=== PATIENT | female | born 1955 | race Caucasian/White ===

== ENCOUNTER 2019-04-06 07:30 | Inpatient (IN) | payer BC, OTHER ==
--- NOTE | 2019-04-01 14:15 | HP ---
AMENDED REPORT NOW INCLUDES DESIGNATED COSIGNER HISTORY AND PHYSICAL: DATE OF ADMISSION/SURGERY: 04/06/19 DATE OF OFFICE VISIT: 03/27/19 SURGEON: Dr. Odell.* (DICTATED BY NEELAM DE GUZMAN) PROCEDURE: Left total hip replacement. CHIEF COMPLAINT: Left hip pain. HISTORY OF PRESENT ILLNESS: Ms. Parada is a 63-year-old female, who reports approximately 2 years of increasingly severe left hip pain. This has become 8/ 10 daily aching pain in her left groin. She has difficulty walking about half a block without severe pain. She uses a rolling walker at all times. She has tried ultrasound-guided injections, which helped temporarily. She has also tried physical therapy, antiinflammatories, and pain medication. At this point , she would like to proceed with a total hip arthroplasty. She does have a significant history of lumbar back problems and pain. She had a lumbar fusion 3 years ago. PAST MEDICAL HISTORY: 1. Morbid obesity. 2. Chronic back pain. 3. Lumbar stenosis. 4. Depression. 5. Anxiety. 6. Hypertension. 7. Hypercholesterolemia. 8. Osteoarthritis. PAST SURGICAL HISTORY: 1. Spinal fusion, 2017. 2. Spinal cord stimulator implantation, 2017. 3. in 1988. 4. Cataract excisions bilaterally in 2019. MEDICATIONS: 1. Citalopram hydrobromide p.o. daily, unknown dosage. 2. Metoprolol tartrate 50 mg p.o. daily. 3. Pravastatin sodium 20 mg p.o. daily. 4. Hydrochlorothiazide 12.5 mg 1 p.o. daily. 5. Bupropion HCl 300 mg 1 p.o. daily. 6. Losartan potassium unknown dosage. 7. Tylenol as needed. 8. Nortriptyline HCl 25 mg p.o. daily. 9. Nabumetone 750 mg q.12 hours. 10. Tizanidine HCl 4 mg take 1-1/2 tablets in the a.m. and 3 in the p.m. 11. Vitamin D 2000 units p.o. daily. 12. Escitalopram oxalate 20 mg 1 p.o. daily. 13. Chantix. ALLERGIES: No known drug allergies. FAMILY HISTORY: Positive for cancer, lupus, and cystic fibrosis. SOCIAL HISTORY: The patient is currently disabled and lives at home with her . She is a smoker, smokes about 6 cigarettes currently per day. She used to smoke 1-1/2 packs x40 years. She drinks about 5 alcoholic beverages per week. She denies recreational drug use. She is right-hand dominant. She uses a walker to ambulate. REVIEW OF SYSTEMS: General: Negative for fevers, chills, night sweats, unexplained weight loss or gain. No known anesthesia problems. HEENT: Negative for headache, lightheadedness, syncopal episodes, visual changes. Integumentary: Negative for abrasions, lesions, open wounds. Cardiothoracic: Negative for hypertension, chest pain, palpitations, or edema. Respiratory: Negative for shortness of breath with exertion, chronic cough, or wheezing. GI : Positive for GERD symptoms. Negative for nausea, vomiting, diarrhea, constipation. : Negative for nocturia, urinary frequency, urgency, history of UTIs, kidney problems. Musculoskeletal: Positive for back pain. Positive for history of fractures and positive for left hip pain. Neurologic: Negative for paresthesias, numbness, history of seizures, stroke, or poor balance. Negative of anxiety, depressions. Endocrine: Negative for diabetes, thyroid issues. Hematologic: Negative for easy bruising, anemia, bleeding disorders, history of DVT. ID: Positive for MRSA infection in 2017. Negative for hep C or HIV. PHYSICAL EXAMINATION GENERAL: Well-developed, well-nourished 63-year-old female in no acute distress. VITAL SIGNS: Height 60 inches, weight 220 pounds. Pulse 72, BP 96/64, BMI 43. HEENT: Normocephalic, atraumatic. PERRLA. Extraocular movements intact. NECK: Supple. No palpable lymph nodes. Throat clear. PULMONARY: Lungs clear to auscultation bilaterally. No wheezes, rales, or rhonchi. CARDIO: Regular rate and rhythm. S1 and S2 normal. No murmurs, rubs, gallops , or edema. ABDOMEN: Positive bowel sounds, soft, and nontender. NEUROLOGIC: A and O x3. Cranial nerves II through XII intact. Sensation is intact to light touch. MUSCULOSKELETAL: Left lower extremity: The patient's skin is intact. No abrasions or open wounds. No palpable masses or lymph nodes. She has 0 to 80 degrees of flexion at the hip with severe groin pain. She lacks 10 degrees from neutral. She has no internal rotation with groin pain. She has 30 degrees of external rotation with severe groin pain. Distally no edema, varicosities, or hyperreflexia. She reports some slight decreased sensation to light touch along the lateral posterior gastrocnemius and no other loss of sensation. Otherwise, sensation to light touch is intact. 5/5 ankle, dorsiflexion and plantarflexion strength. Full sensation to light touch in all nerve distributions. 2+ palpable DP pulse. DIAGNOSTIC STUDIES: Multi-view radiographs of her left hip were reviewed and showed [id number] arthritis with complete loss of joint space with some osteophyte formation, subchondral sclerosis, and cyst formation. IMPRESSION: Left hip severe osteoarthritis. PLAN: The patient is scheduled to undergo a left total hip replacement on 04/[address] Ghazala Odell. She has discussed with the patient the procedure as well as the risks and benefits and she elects to proceed. She will return to the office 10 to 14 days postop followup and suture removal. Prescription for Percocet will be sent home with the patient when she is discharged from the hospital. An I-STOP was performed today in the office and was negative. NEELAM ESTEVEZ [id number]/FRANKIE #: [id number] AGUSTÍN
--- NOTE | 2019-06-05 13:39 | HP ---
PREOPERATIVE HISTORY AND PHYSICAL: DATE OF ADMISSION/SURGERY: 06/13/19 SURGEON: Dr. Ghazala Odell.* (DICTATED BY NEELAM ABBOTT) PROCEDURE: Left total hip arthroplasty. CHIEF COMPLAINT: Left hip pain. HISTORY OF PRESENT ILLNESS: Ms. Parada is a 64-year-old female followed by Dr. Odell for worsening left hip pain. Over the last 6 months, the patient's pain has became an 8/10 daily with a deep ache in the left groin. She has difficulty walking even a half block without severe pain. She uses a rolling walker at times and has undergone steroid-guided injections without relief. She has also tried conservative treatments of physical therapy, antiinflammatories, and pain medication and is seeking surgical intervention with Dr. Odell today. PAST MEDICAL HISTORY: 1. Morbid obesity. 2. Chronic back pain. 3. Lumbar stenosis. 4. Depression/anxiety. 5. Hypertension. 6. Hypercholesterolemia. 7. Osteoarthritis. She denies a history of DVT or pulmonary embolism. PAST SURGICAL HISTORY: 1. Spinal fusion in 2017. 2. Spinal cord stimulator implantation in 2017. 3. . She denies anesthetic complications with any of these procedures. CURRENT MEDICATIONS: 1. Metoprolol tartrate 50 mg 1 tab p.o. daily. 2. Atorvastatin 40 mg 1 tab p.o. daily. 3. Bupropion HCL 300 mg 1 tab p.o. daily. 4. Losartan potassium 50 mg 1 tab p.o. daily. 5. Tylenol 500 mg p.r.n. for pain. 6. Nortriptyline HCL 25 mg 1 tab p.o. daily. 7. Vitamin D 2000 units 1 tab p.o. daily. 8. Citalopram oxalate 20 mg 1 tab p.o. daily. 9. Tizanidine HCL 4 mg 1-1/2 tabs q.a.m. and 3 tabs q.p.m. 10. Nabumetone 750 mg every 12 hours. ALLERGIES: TRAMADOL causes hallucinations and nausea. FAMILY HISTORY: Positive for cancer, but negative for diabetes or heart disease. SOCIAL HISTORY: She lives with her , who will care for her postoperatively. She is currently disabled. She smokes 1 to 2 cigarettes daily and consumes 5 alcoholic beverages per week. She denies recreational drug use. REVIEW OF SYSTEMS: Fourteen systems were reviewed with the patient and are positive for left hip pain, lower back pain, fatigue, and depression, and otherwise all systems are negative. PHYSICAL EXAMINATION GENERAL: She is a well-developed, well-nourished female, seated in exam chair, in no acute distress, with appropriate affect. VITAL SIGNS: Height 60 inches, weight 221 pounds. Pulse 72, blood pressure 132 /84. HEENT: Normocephalic, atraumatic. Hearing and vision are grossly intact with extraocular movements intact. NECK: The trachea is midline and symmetrical. CHEST: Lungs are clear to auscultation. No wheezes, rales, or rhonchi appreciated. CARDIO: Regular rate and rhythm. Normal S1, S2. No murmurs, rubs, or gallops noted. ABDOMEN: Nondistended. Bowel sounds present. MUSCULOSKELETAL: Left Lower Extremity: Skin is dry and intact without abrasions or open wounds. No palpable masses or lymph nodes. She flexes the hip to 80 degrees with severe groin pain. She lacks 10 degrees from neutral and has no internal rotation. She has 30 degrees of external rotation with severe groin pain, but no distal edema, varicosities, or hyperreflexia. She reports some slight decreased sensation to light touch along the lateral and posterior gastroc, but no other loss of sensation. She has 5/5 strength against resistance in 4 planes in the left ankle and sensation is otherwise intact with 2+ dorsalis pedis pulse. IMAGING: X-rays performed previously showed [id number] osteoarthritis with complete loss of joint space, osteophyte formation, and subchondral sclerosis with cyst formation. ASSESSMENT: End-stage left hip osteoarthritis. PLAN: Left total hip arthroplasty with Dr. Odell. The patient's questions were answered and she would like to proceed. Dr. Odell reviewed the potential risks and complications with the patient today. The patient will follow up postoperatively and pain medicines will be dispensed postoperatively. NEELAM ABBOTT [id number]/CPS #: [id number] MTDD
[2019-06-12] MEDS ORDERED: Buffered Lidocaine 1% SYRIN* 1 ML/SYRINGE INTRADERM ONE (10:58)
[2019-06-13] MEDS ORDERED: Tranexamic Acid 1,000 MG in NS 0.9% 50 ML* (outpatient use) IV SCH ×2
[2019-06-13] MEDS ORDERED: Lactated Ringers 1000 ML Bag* 1,000 ML IV SCH (06:00)
--- OUTSIDE RECORDS SUMMARY | 2019-06-13 10:36 | XMS REPORT | Continuity of Care Document ---
:1955 External Reference #:[id number] Author Name Ghazala Odell M.D. (transmitted by agent of provider Tahira Monroe) Address [address] [place] [address] Care Team Providers Name Role Phone Mirtha Flores MD - Family Medicine Care Team Information Licensing Specialist [phone] Problems Active Problems Provider Date Localized, primary osteoarthritis of the pelvic Ghazala Odell M.D. Onset: 03/2019 region and thigh Social History Type Date Description Comments Sex Unknown ETOH Use Drinks 4 Alcoholic Beverages Per Week Tobacco Use Start: Unknown Light tobacco smoker (10 or fewer cigarettes/day) Smoking Status Reviewed: 06/02/19 Light tobacco smoker (10 or fewer cigarettes/day) Exercise Type/Frequency Exercises rarely Allergies, Adverse Reactions, Alerts Active Allergies Reaction Severity Comments Date Tramadol hallucinations/ nausea 06/02/2019 Inactive Allergies NKDA 04/12/2014 Medications Active Medications SIG Qnty Indications Ordering Date Provider Metoprolol Tartrate Unknown 50mg Tablets Hydrochlorothiazide 1 By Mouth Unknown 12.5mg Capsules Daily Bupropion HCL 1 by mouth Unknown 300mg Tablets every day Losartan Potassium Unknown 50mg Tablets Tylenol as needed Unknown 325mg Capsules Nortriptyline HCL 25mg Unknown Nabumetone 750mg q 12 hrs Unknown Tizanidine HCL 4 mg. take 1.5 Unknown in Am and 3 in PM Vitamin D Unknown 2000Unit Capsules Escitalopram Oxalate 1 by mouth Unknown 20mg Tablets every day Chantix Unknown Atorvastatin Calcium 1 by mouth Unknown 40mg Tablets every day Immunizations CPT Code Status Date Vaccine Lot # [id number] Given 06/02/1999 Flu Vaccine 05162 Given 06/02/1999 Tetanus And Diptheria (Td) For Adult Use Preservative Free Vital Signs Date Vital Result Comment 06/02/2019 10:50am Height 60 inches 5'0" Weight 221.00 lb Heart Rate 72 /min BP Systolic 132 mmHg BP Diastolic 84 mmHg Respiratory Rate 18 /min Body Temperature 98.0 F Pain Level 9 BMI (Body Mass Index) 43.2 kg/m2 03/27/2019 9:47am Height 60 inches 5'0" Weight 220.00 lb per patient Heart Rate 72 /min BP Systolic 96 mmHg BP Diastolic 64 mmHg BMI (Body Mass Index) 43.0 kg/m2 Results Test Date Facility Test Result H/L Range Note Urinalysis Profile 03/27/2019 [facility] Urine Color Yellow [address] [place] [address] [phone] Urine Appearance Cloudy Urine Specific [place] 1.019 Normal 1.010-1.030 Urine pH 5.0 Normal 5-9 Urine Urobilinogen Negative Negative Urine Ketones Trace Abnormal Negative Urine Protein Negative Negative Urine Leukocytes Negative Negative Urine Blood Negative Negative Urine Nitrite Negative Negative Urine Bilirubin Negative Negative Urine Glucose Negative Negative Inr/Protime 03/27/2019 [facility] Inr 0.85 Normal 0.82-1.[address] [place] [address] [phone] Laboratory test 03/27/2019 [facility] Partial 29.5 Normal 26.0 -38.[address] [place] [address] Time PTT [phone] Type & Screen 03/27/2019 [facility] Patient O Positive [address]IVE Blood Type [place], [place] [id number] [phone] Antibody Screen NEGATIVE Urine Culture And 03/27/2019 [facility] Urine Culture SEE RESULT [address] [place] [address] [phone] 1 AA 04/06 2 Standard intensity warfarin therapeutic range: 2.0-3.0 High intensity warfarin therapeutic range: 2.5-3.5 3 AA 04/06 4 SEE RESULT BELOW Name: PAPO MERCEDES : [address]: Ghazala Odell MD Acct: [id number] Unit: [id number] AGE: 63 Location: PAT Re03/27/19 SEX: F Status: REG REF SPEC: [id number] KARL: 03/27/19-[address]: Ghazala Odell MD REQ: [id number] RECD: 03/27/19 STATUS: EDEN ORTIZ DR: Mirtha Flores MD _ SOURCE: URINE SPDESC: ORDERED: Urine Culture COMMENTS: JEY 04/06 QUERIES: Urine Source: Clean Catch Procedure Result Reported Site Urine Culture Final 03/28/19- 1514 ML No growth of clinically significant organisms * ML - Main Lab . END OF REPORT DEPARTMENT OF PATHOLOGY, [address] [place] [address] Nickolas Jiménez M.D. Director [facility] # [id number] Procedures Description No Information Available Medical Devices Description No Information Available Encounters Type Date Location Provider Dx Diagnosis Office Visit 02/17/2019 [facility] Ghazala Odell M25.552 Pain in left hip 2:[facility] M16.12 Unilateral primary osteoarthritis, left hip Assessments Date Code Description Provider 03/27/2019 M16.12 Unilateral primary osteoarthritis, left hip Ghazala Odell M.D. 03/27/2019 M25.552 Pain in left hip Ghazala Odell M.D. 02/17/2019 M25.552 Pain in left hip Ghazala Odell M.D. 02/17/2019 M16.12 Unilateral primary osteoarthritis, left hip Ghazala Odell M.D. Plan of Treatment Future Appointment(s):06/23/2019 2:00 pm - Ghazala Odell M.D[facility] at [facility]06/13/2019 1:30 pm - Ghazala Odell M.D. at [facility] Functional Status Description No Information Available Mental Status Description No Information Available Referrals Description No Information Available
[2019-06-13] MEDS ORDERED: Lidocaine 2% PF * 5 ML VIAL ONE ×3 (11:01→11:34)
[2019-06-13] MEDS ORDERED: ROPIVACAINE 5 MG/ML 30 ML BTL (0.5%) ONE ×2 (11:01→13:02)
[2019-06-13] MEDS ORDERED: Dexmedetomidine* 200 MCG/2 ML 2 ML VIAL ONE (11:01)
[2019-06-13] MEDS ORDERED: ceFAZolin 2 GM in NS PREMIX(*) 2 GM/100 ML BAG IVPB ONE (11:20)
[2019-06-13] MEDS ORDERED: Midazolam* 1 MG/ML 2 ML VIAL (2 MG) ONE ×2 (11:22→14:38)
[2019-06-13] MEDS ORDERED: Propofol* 10 MG/ML 20 ML BTL ONE (11:25)
[2019-06-13] MEDS ORDERED: KETAMINE HCL* 50 MG/ML 10 ML VIAL ONE (11:25)
[2019-06-13] MEDS ORDERED: Bupivacaine 0.5% SDV PF* 30ML VIAL ONE (11:34)
[2019-06-13] MEDS ORDERED: EPHEDrine (Pressors)* 50 MG/ML VIAL ONE ×3 (14:06→16:07)
[2019-06-13] MEDS ORDERED: HYDROmorphone INJ1* 1 MG/ML SYRINGE ONE ×2 (14:19→16:26)
[2019-06-13] MEDS ORDERED: Labetalol IV* 5 MG/ML 20 ML VIAL ONE (14:23)
[2019-06-13] MEDS ORDERED: DiMENhydriNATE IV* 50 MG/ML VIAL IV PUSH PRN (14:47)
[2019-06-13] MEDS ORDERED: Naloxone* 0.4 MG/ML 1 ML VIAL IV PRN (14:47)
[2019-06-13] MEDS ORDERED: oxyCODONE TAB* 5 MG TAB PO PRN (14:47)
[2019-06-13] MEDS ORDERED: Ketorolac INJ* 30 MG/ML 1 ML VIAL ONE (15:07)
[2019-06-13] MEDS ORDERED: Ondansetron INJ* 2 MG/ML VIAL ONE (15:07)
[2019-06-13] MEDS ORDERED: Metoclopramide IV* 5 MG/ML 2 ML VIAL ONE (15:07)
[2019-06-13] MEDS ORDERED: Dexamethasone IV* 4 MG/ML 1 ML (4 MG) ONE (15:07)
[2019-06-13] MEDS ORDERED: nitroGLYCERIN IV VIAL* 5 MG/ML VIAL ONE (15:18)
[2019-06-13] MEDS ORDERED: Acetaminophen IV 1GM/100ML * 100 ML ONE (15:22)
[2019-06-13] MEDS ORDERED: Bupivacaine 0.25% SDV PF* 10 ML VIAL INJ ONE (15:32)
[2019-06-13] MEDS ORDERED: fentaNYL* 50 MCG/ML 2 ML VIAL (100 MCG VIAL) ONE (15:32)
[2019-06-13] MEDS ORDERED: hydrALAZINE IV* 20 MG/ML VIAL ONE (15:38)
[2019-06-13] MEDS ORDERED: Morphine INJ* 2 MG/ML 1 ML SYRINGE (TWO MG - NEW SYRINGE VERSION) IV PRN (16:05)
[2019-06-13] MEDS ORDERED: Acetaminophen TAB* 325 MG PO PRN (16:05)
[2019-06-13] MEDS ORDERED: Ondansetron ODT TAB* 4 MG PO PRN (16:05)
[2019-06-13] MEDS ORDERED: Ondansetron INJ* 2 MG/ML VIAL IV PRN (16:05)
[2019-06-13] MEDS ORDERED: Magnesium Hydroxide LIQ* 30 ML UDC PO PRN (16:05)
[2019-06-13] MEDS ORDERED: diPHENhydraMINE PO* 25 MG PO PRN (16:05)
[2019-06-13] MEDS ORDERED: diPHENhydraMINE IV* 50 MG/ML 1 ml VIAL (BENADRYL) IV PRN (16:05)
[2019-06-13] MEDS ORDERED: Phenylephrine 40 MCG/ML SYRINGE ONE (16:20)
[2019-06-13] MEDS: HYDROmorphone INJ1* 1 MG/ML SYRINGE IV PRN ×4 (16:27→17:22)
[2019-06-13] MEDS ORDERED: oxyCODONE TAB* 5 MG TAB ONE (16:51)
--- NOTE | 2019-06-13 17:26 | OP ---
Operative Report - Blank - Operative Report Date of Operation: 06/13/19 Note: PAPO MERCEDES 1955 Date Of Surgery: 06/13/19 Ghazala Odell MD Channel Process Plant Operator: Jana RICHTER did help throughout the procedure with preparation of the hip, wound retraction, manipulation of the hip, and wound closure. Anesthesiologist: Jana Kirby MD Anesthesia Type: General Preoperative Diagnosis: Left severe degenerative osteoarthritis of the hip Postoperative Diagnosis: As above Procedure Performed: Left Total Hip Arthroplasty Complications: None Specimen: Femoral head and acetabular reamings sent to pathology. Hardware used: This is uncemented Hope total hip arthroplasty hardware for the femur a size 4 accolade II with 127 neck angle femoral component, for the acetabulum a size 46C trident II tritanium cluster hole shell with a 15 mm screw, for the insert a size 32C trident X3 polyethylene insert, and for the femoral head a size 32 + 0 biolox ceramic V40 femoral head. Brief history/Indication: PAPO MERCEDES was known in clinic and had a history of severe left hip pain. She failed conservative treatment with anti- inflammatories, pain pills, intra-articular injections and physical therapy. She elected to undergo left total hip arthroplasty due to continued pain and decreased quality of life. Radiographs showed severe end stage osteoarthritis of the hip with bone on bone contact. Informed consent was obtained from the patient. She understood the risks of surgery included but were not limited to: bleeding, infection, damage to nearby structures, intraoperative fracture, nerve palsy, failure of the hardware, early loosening, stiffness or loss of motion, dislocation, leg length discrepancy, anesthesia complications, stroke, heart attack, blood clot and . She wished to proceed. Intra-Operative findings: Intraoperatively the patient was noted to have severe loss of cartilage of the acetabulum and femoral head. Description of the Procedure: PAPO MERCEDES was identified in the preanesthesia unit. Her left hip was marked as the correct operative side. Informed consent was signed and placed in the chart. The patient was taken to the operating room and placed under anesthesia without complication. A haas catheter was placed. The patient was placed on the peg board with all bony prominences well padded. The left lower extremity was prepped and draped in the usual sterile fashion. Preoperative time -out was made to correctly identify the patient, side and site. Appropriate intraoperative antibiotics were given within one hour of incision. A standard posterior incision was made and carried sharply down to the lateral fascia. A new 10 blade was used to make an incision in the fascia in line with the skin incision. A charnley retractor was placed. The piriformis and conjoined tendons were identified and elevated off the posterolateral femur using electrocautery. These were tagged with number 5 Ethibond. Next electrocautery was used to make a posterolateral capsular flap and this was tagged with number 5 Ethibonds. The hip was carefully dislocated. Lesser trochanter to the center of the femoral head was measured at 50 mm. The oscillating saw was used to make the femoral neck cut. The femoral head was carefully removed. The femur was retracted anteriorly and the acetabular retractors were placed. Long-handled knife was used to sharply remove any remaining labrum from the acetabular rim. The acetabulum was sequentially reamed up to a size 46. A bleeding subchondral bone bed was obtained. A trial liner was placed and had excellent fit and stability. A 46C trident II tritanium cup with a 15 mm screw was placed and had excellent stability with appropriate anteversion and abduction angle. A size 32 C polyethylene liner was impacted into the acetabular shell. The liner was checked for stability and was stable. Next attention was turned to preparation of the femoral canal. A canal finder was used to enter the proximal femur. The femoral canal was sequentially broached up to a size 4 femoral broach trial. A trial neck and 32 +0 trial femoral head was chosen. Lesser trochanter to center of the femoral head measurement was satisfactory. The hip was reduced and taken through a range of motion. The hip was stable in all positions with good soft tissue tension and appropriate leg lengths. The hip was dislocated and all trials were removed. The final implant chosen was a accolade II size 4 with 127 neck angle. This stem was impacted into the femoral canal without difficulty. The stem was stable with appropriate anteversion. The femoral head chosen was a 32 +0 ceramic head. The head was impacted onto the femoral neck without difficulty. The final lesser trochanter to center of the femoral head measurement was satisfactory. The hip was reduced and taken through a range of motion. The hip was stable in all positions with good soft tissue tension and appropriate leg lengths. The hip was copiously irrigated with sterile saline. The previously tagged capsule and tendons were repaired to the posterolateral femur through two trochanteric drill holes. The lateral fascia layer was closed using number 1 vicryls. The rest of the incision was closed in a layered fashion using 0 and 2-0 vicryls. The skin was closed using 3-0 monocryl suture and Dermabond. Sterile adaptic, 4x4s and paper tape was used to cover the incision. The patients anesthesia was reversed without difficulty. She was taken to the PACU in stable condition. Intended weight-bearing will be as tolerated with posterior hip precautions.
[2019-06-13] MEDS: Lactated Ringers 1000 ML Bag* 1,000 ML IV SCH (18:56)
[2019-06-13] MEDS: oxyCODONE/Acetamin 5/325 MG* TAB PO PRN (19:57)
--- NOTE | 2019-06-13 20:08 | CONS ---
CC: Dr. Ghazala Odell; Dr. Mirtha Flores CONSULTATION REPORT: DATE OF CONSULTATION: 06/13/19 TIME OF EVALUATION: 4:30 p.m. REQUESTING PHYSICIAN: Dr. Ghazala Odell. PRIMARY CARE PROVIDER: Dr. Mirtha Flores. REASON FOR CONSULTATION: Management of comorbidities. HISTORY OF PRESENT ILLNESS: Ms. Parada is a 64-year-old female with past medical history of morbid ob esity with a BMI of 43, chronic back pain, lumbar stenosis, depression, anxiety, hypertension, hyperl ipidemia, osteoarthritis, who has been following with Dr. Odell with left hip pain. She has received multiple options of conservative treatment including steroid injections, physical therapy, and antii nflammatories with no success, so she was admitted today to undergo left total hip arthroplasty. During my evaluation, the patient was sent to PACU, recovering from anesthesia. It is reported that the patient was hypertensive during the procedure and received labetalol and hydralazine. After the surgery, on her arrival to PACU, the patient was hypotensive and received 1 dose of Babatunde-Synephrine, a nd she had good blood pressure response. At the time of my evaluation, the patient denied hip pain, but states that she was having back pain t hat is her usual chronic back pain. PAST MEDICAL HISTORY: 1. Morbid obesity. 2. Chronic back pain, status post spinal fusion and spinal cord stimulator implantation in 2017. 3. Lumbar stenosis. 4. Depression. 5. Anxiety. 6. Hypertension. 7. Hyperlipidemia. 8. Osteoarthritis. 9. Tobacco abuse. MEDICATION LIST: 1. Atorvastatin 40 mg p.o. at bedtime. 2. Bupropion 300 mg p.o. daily. 3. Cholecalciferol 2000 units p.o. daily. 4. Escitalopram 20 mg p.o. daily. 5. Hydrochlorothiazide 12.5 mg p.o. daily. 6. Losartan 50 mg p.o. daily. 7. Metoprolol tartrate 50 mg p.o. daily. 8. Nabumetone 750 mg p.o. q.12 hours. 9. Nortriptyline 50 mg p.o. at bedtime. 10. Tizanidine 4 mg 1-1/2 tablets p.o. in the morning and 2 to 3 tablets p.o. at bedtime. 11. Acetaminophen 2 tablets p.o. q.i.d. p.r.n. pain. 12. Chantix 1 mg p.o. b.i.d. ALLERGIES: No known drug allergies, but tramadol caused hallucinations and nausea. FAMILY HISTORY: There is a family history of cancer. SOCIAL HISTORY: The patient smokes 1 to 2 cigarettes a day and drinks 5 alcoholic beverages per week . No history of drug use. Surrogate decision maker is her son Jose Maria Parada, phone number is . REVIEW OF SYSTEMS: Limited as the patient is recovering from surgery, but all the pertinent negative and positive findings are in the HPI. PHYSICAL EXAM: Vital Signs: Temperature 97.2, heart rate is 84, respiratory rate is 21, oxygen satu ration is 98% on 2 L, blood pressure is 108/68. General: The patient is a morbidly obese lady, shelly martins in bed, in no acute distress. HEENT: Pupils are equal. Moist mucous membranes. CVS: Normal S1, S2. Regular rate and rhythm. Chest: Breath sounds bilaterally with no added sounds. Abdomen is ob denny. Bowel sounds present. Extremities: The patient has a clean dressing to her left hip and abduct or pillow in place. Neuro: She is alert and oriented x3, and she is recovering from spinal anesthes ia and not able to move her left leg yet. ASSESSMENT AND PLAN: Ms. Parada is a 64-year-old female with a past medical history of morbid obesity with a BMI of 43, chronic back pain, lumbar stenosis, depression, anxiety, hypertension, hypercholes terolemia, who was admitted for elective left total hip replacement. 1. Left total hip replacement. Management as per Orthopedics. 2. Hypertension. It is reported that the patient was hypertensive during the procedure requiring la betalol and hydralazine IV, and was hypotensive on arrival to PACU requiring Babatunde-Synephrine. At this point, I am going to hold her antihypertensives, I believe that probably can be resumed tomorrow. 3. Depression/anxiety. We will continue bupropion, escitalopram, and nortriptyline. 4. Chronic pain. Continue tizanidine and acetaminophen. 5. Tobacco abuse. Continue Chantix. 6. Hyperlipidemia. Continue atorvastatin. 7. DVT prophylaxis: We will be with apixaban as per Ortho. 8. Code status is full. TIME SPENT: Approximately 50 minutes was spent to complete this consultation. More than half this ti me was spent [id number] with the patient and coordination of care. [id number]/CPS #: [id number]
[2019-06-13] MEDS: CMC:Varenicline (NF) 1 MG TAB PO SCH (21:24)
[2019-06-13] MEDS: ceFAZolin 1 GM ADVAN(*) 1 GM in NS 0.9% 50 ML* 50 ML IVPB SCH (21:29)
[2019-06-13] MEDS: Magnesium Hydroxide LIQ* 30 ML UDC PO SCH (21:30)
[2019-06-13] MEDS: Docusate CAP* 100 MG PO SCH (21:30)
[2019-06-13] MEDS: Nortriptyline CAP* 25 MG PO SCH (21:31)
[2019-06-13] MEDS: Atorvastatin* 40 MG TAB PO SCH (21:36)
[2019-06-13] MEDS: Nystatin TOP POWDER* 15 GM BTL TOPICAL SCH (21:39)
[2019-06-13] MEDS: oxyCODONE TAB* 5 MG TAB PO PRN (22:27)
[2019-06-14] MEDS: oxyCODONE/Acetamin 5/325 MG* TAB PO PRN ×3 (01:23→21:11)
[2019-06-14] MEDS: oxyCODONE TAB* 5 MG TAB PO PRN (04:13)
[2019-06-14] MEDS: Lactated Ringers 1000 ML Bag* 1,000 ML IV SCH (04:16)
[2019-06-14] MEDS: Cyclobenzaprine TAB* 10 MG PO PRN ×3 (05:49→18:31)
[2019-06-14] MEDS: ceFAZolin 1 GM ADVAN(*) 1 GM in NS 0.9% 50 ML* 50 ML IVPB SCH ×2 (05:50→13:08)
[2019-06-14 06:55] LABS: Hematocrit 32 % (35-47); Hemoglobin 10.7 g/dL (12.0-16.0); Mean Platelet Volume 8.3 fL (7.4-10.4); Platelet Count 364 10^3/uL (150-450)
[2019-06-14 07:11] LABS: BUN/Creatinine Ratio 15.5 (8-20); Calcium 9.4 mg/dL (8.6-10.3); EGFR African American 65.7 (>60); EGFR Non-African American 54.3 (>60)
--- NOTE | 2019-06-14 08:42 | PN ---
Subjective Date of Service: 06/14/19 Interval History: Feeling okay this morning except that she couldn't sleep. Pain didn't particularly keep her awake and she has no pain now. Ate breakfast but has some stomach pains in the low abdomen described as a "stomach ache." No chest pain, shortness of breath. She did have a cough yesterday and a little one this morning. Objective Active Medications: Acetaminophen (Tylenol Tab*) 650 mg PO Q8HR PRN PRN Reason: MILD PAIN or TEMP > 100.4 Apixaban (Eliquis*) 2.5 mg PO BID [facility] Atorvastatin Calcium (Lipitor*) 40 mg PO QPM [facility] Last Admin: 06/13/19 21:36 Dose: 40 mg Bisacodyl (Dulcolax Supp*) 10 mg [place] DAILY PRN PRN Reason: CONSTIPATION Bupropion HCl (Bupropion Xl*) 300 mg PO QAM [facility] Cyclobenzaprine HCl (Flexeril Tab*) 10 mg PO Q6H PRN PRN Reason: SPASMS Last Admin: 06/14/19 05:49 Dose: 10 mg Diphenhydramine HCl (Benadryl Iv*) 25 mg IV Q6H PRN PRN Reason: PRURITIS Diphenhydramine HCl (Benadryl Po*) 25 mg PO Q6H PRN PRN Reason: PRURITIS Docusate Sodium (Colace Cap*) 100 mg PO BID [facility] Last Admin: 06/13/19 21:30 Dose: 100 mg Escitalopram Oxalate (Lexapro *) 20 mg PO QAM [facility] Cefazolin Sodium 1 gm/ Sodium (Chloride) 50 mls @ 200 mls/hr IVPB Q8H [facility] Stop: 06/14/19 13:44 Last Admin: 06/14/19 05:50 Dose: 200 mls/hr Lactated Ringer's (Lactated Ringers 1000 Ml Bag*) 1,000 mls @ 100 mls/hr IV PER RATE [facility] Last Admin: 06/14/19 04:16 Dose: 100 mls/hr Influenza Virus Vaccine (Fluarix Quad [id number] Syr) 0.5 ml IM .ONCE ONE Stop: 06/14/19 09:01 Lactulose (Lactulose*) 30 ml PO BID PRN PRN Reason: CONSTIPATION Magnesium Hydroxide (Milk Of Magnesia Liq*) 30 ml PO BID [facility] Last Admin: 06/13/19 21:30 Dose: 30 ml Magnesium Hydroxide (Milk Of Magnesia Liq*) 30 ml PO Q6H PRN PRN Reason: CONSTIPATION Morphine Sulfate (Morphine Inj (Syringe))*) 2 mg IV Q4H PRN PRN Reason: Pain - Unrelieved Multivitamins (Theragran Tab*) 1 tab PO DAILY [place] Nortriptyline HCl (Pamelor Cap*) 50 mg PO BEDTIME [facility] Last Admin: 06/13/19 21:31 Dose: 50 mg Nystatin (Nystatin Top Powder*) 1 applic TOPICAL BID [facility] Last Admin: 06/13/19 21:39 Dose: Not Given Ondansetron HCl (Zofran Inj*) 4 mg IV Q6H PRN PRN Reason: NAUSEA Ondansetron HCl (Zofran Odt Tab*) 4 mg PO Q6H PRN PRN Reason: NAUSEA Oxycodone HCl (Roxycodone Tab*) 10 mg PO Q4H PRN PRN Reason: Pain - Breakthrough Last Admin: 06/14/19 04:13 Dose: 10 mg Oxycodone/Acetaminophen (Percocet 5/325 Tab*) 1 tab PO Q4H PRN PRN Reason: PAIN - MODERATE Last Admin: 06/13/19 19:57 Dose: 1 tab Oxycodone/Acetaminophen (Percocet 5/325 Tab*) 2 tab PO Q4H PRN PRN Reason: PAIN - SEVERE Last Admin: 06/14/19 01:23 Dose: 2 tab Pneumococcal Polyvalent Vaccine (Pneumococcal Vac 23-Polyvalent*) 0.5 ml IM .ONCE ONE Stop: 06/14/19 09:01 Varenicline (Chantix (Nf)) 1 mg PO BID [facility]; Protocol Last Admin: 06/13/19 21:24 Dose: Not Given Vital Signs - 8 hr 06/14/19 06/14/19 06/14/19 01:23 02:00 04:00 Temperature 98.1 F Pulse Rate 99 Respiratory 18 18 18 Rate Blood Pressure 112/68 (mmHg) O2 Sat by Pulse 95 95 Oximetry 06/14/19 06/14/19 06/14/19 04:13 05:49 06:12 Temperature Pulse Rate Respiratory 18 17 17 Rate Blood Pressure (mmHg) O2 Sat by Pulse 98 Oximetry 06/14/19 07:25 Temperature 99.8 F Pulse Rate 112 Respiratory 16 Rate Blood Pressure 94/66 (mmHg) O2 Sat by Pulse 96 Oximetry Oxygen Devices in Use Now: None Appearance: alert, comfortable, well appearing Eyes: No Scleral Icterus Ears/Nose/Mouth/Throat: NL Teeth, Lips, Gums Neck: NL Appearance and Movements; NL JVP Respiratory: Symmetrical Chest Expansion and Respiratory Effort, Clear to Auscultation, - Cardiovascular: - - tachycardic, no murmurs Abdominal: NL Sounds; No Tenderness; No Distention, No Hepatosplenomegaly, - - no guarding or rebound, cannot illicit pain with palpation Lymphatic: No Cervical Adenopathy Extremities: No Edema, - - left hip dressed Skin: No Rash or Ulcers Result Diagrams: 06/14/19 06:14 06/14/19 06:14 Assess/Plan/Problems-Billing Assessment: 64 year old woman with history of HTN and osteoarthritis, admitted 06/13 for elective left total hip arthroplasty. - Patient Problems (1) Status post total hip replacement, left Current Visit: Yes Status: Acute Code(s): Z96.642 - PRESENCE OF LEFT ARTIFICIAL HIP JOINT SNOMED Code(s): 957869626181 Comment: POD #1 pain is controlled bowel regimen is ordered PT per ortho today (2) Tachycardia Current Visit: Yes Status: Acute Code(s): R00.0 - TACHYCARDIA, UNSPECIFIED SNOMED Code(s): 4086354 Comment: sounds regular on exam; get EKG today no evidence of sirs/sepsis, will trend (3) HTN (hypertension) Current Visit: Yes Status: Acute Code(s): I10 - ESSENTIAL (PRIMARY) HYPERTENSION SNOMED Code(s): 94150123 Comment: normotensive off antihypertensives intraoperatively required antihypertensives and then neosynephrine post-op (4) DVT prophylaxis Current Visit: Yes Status: Acute Code(s): Z29.9 - ENCOUNTER FOR PROPHYLACTIC MEASURES, UNSPECIFIED SNOMED Code(s): 976952478 Comment: apixaban 2.5mg bid Status and Disposition: we will continue to follow
[2019-06-14] MEDS ORDERED: Influenza VAC *QUAD* 2019-20* 0.5 ML SYRINGE IM ONE (09:00)
[2019-06-14] MEDS ORDERED: Pneumococcal *Vac Polyvalent 0.5 ML VIAL IM ONE (09:00)
[2019-06-14] MEDS: Magnesium Hydroxide LIQ* 30 ML UDC PO SCH ×2 (10:00→21:11)
[2019-06-14] MEDS: Vitamin THERAPEUTIC TAB PO SCH (10:01)
[2019-06-14] MEDS: Docusate CAP* 100 MG PO SCH ×2 (10:01→21:11)
[2019-06-14] MEDS: Apixaban* 2.5 MG TAB PO SCH ×2 (10:02→21:12)
[2019-06-14] MEDS: Escitalopram * 20 MG TABLET PO SCH (10:02)
[2019-06-14] MEDS: Nystatin TOP POWDER* 15 GM BTL TOPICAL SCH ×2 (10:02→21:28)
[2019-06-14] MEDS: BuPROPion XL* 300 MG TAB.XL PO SCH (10:02)
[2019-06-14] MEDS: CMC:Varenicline (NF) 1 MG TAB PO SCH ×2 (10:05→21:28)
--- NOTE | 2019-06-14 11:23 | PN ---
Progress Note - Progress Note Date of Service: 06/14/19 SOAP: Subjective: [Pt seen and examined at bedside. She is feeling well, this morning she had heart palpitations without associated chest pain or shortness of breath. She was also tachycardic and our medicine is evaluating her. Denies CP, SOB, dizziness or nausea. Objective: []Gen: Appears well, NAD LLE: Left hip dressing CDI, thigh soft, DF/PF intact, DP2+, sensation intact to light touch distally. Calves supple and nontender without erythema, edema or palpable cords Assessment: []POD 1 sp left total hip arthroplasty Plan: []WBAT PT/OT posterior hip precautions eliquis 2.5 mg po BID x 30 days post op Being evaluated by medicine for medical comgmt, tachycardia Vital Signs Temp 99.1 F 06/14/19 11:34 Pulse 119 06/14/19 11:34 Resp 16 06/14/19 11:40 BP 109/69 06/14/19 11:34 Pulse Ox 96 06/14/19 11:34 Intake & Output 06/13/19 06/14/19 06/14/19 18:59 06:59 18:59 Intake Total 2300 1789 Output Total 275 1400 200 Balance 2024 389 -200 Weight 220 lb Intake: IV Fluids 2300 959 LR 2300 959 IVPB 50 ABX - CEFAZOLIN 50 Oral 780 Output: Urine 200 Briceño 125 1400 Estimated Blood Loss 150 Other: # Bowel Movements 0 Laboratory Last Values Hgb 10.7 g/dL (12.0-16.0) L 06/14/19 06:14 Hct 32 % (35-47) L 06/14/19 06:14 Plt Count 364 10^3/uL (150-450) 06/14/19 06:14 MPV 8.3 fL (7.4-10.4) 06/14/19 06:14 Sodium 137 mmol/L (135-145) 06/14/19 06:14 Potassium 4.0 mmol/L (3.5-5.0) 06/14/19 06:14 Chloride 103 mmol/L (101-111) 06/14/19 06:14 Carbon Dioxide 21 mmol/L (22-32) L 06/14/19 06:14 Anion Gap 13 mmol/L (2-11) H 06/14/19 06:14 BUN 16 mg/dL (6-24) 06/14/19 06:14 Creatinine 1.03 mg/dL (0.51-0.95) H 06/14/19 06:14 Est GFR ( Amer) 65.7 (>60) 06/14/19 06:14 Est GFR (Non-Af Amer) 54.3 (>60) 06/14/19 06:14 BUN/Creatinine Ratio 15.5 (8-20) 06/14/19 06:14 Glucose 119 mg/dL (70-100) H 06/14/19 06:14 Calcium 9.4 mg/dL (8.6-10.3) 06/14/19 06:14
[2019-06-14] MEDS ORDERED: NS 0.9% 1000 ML** 1,000 ML IV ONE (13:30)
[2019-06-14] MEDS ORDERED: Iodixanol* (CONTRAST) 320 MG/ML 100 ML SDV IV ONE (18:22)
[2019-06-14] MEDS: Atorvastatin* 40 MG TAB PO SCH (18:30)
[2019-06-14] MEDS: Nortriptyline CAP* 25 MG PO SCH (21:13)
[2019-06-15] MEDS: oxyCODONE TAB* 5 MG TAB PO PRN (00:33)
[2019-06-15] MEDS: Cyclobenzaprine TAB* 10 MG PO PRN ×4 (00:33→23:15)
[2019-06-15 05:13] LABS: Hematocrit 29 % (35-47); Hemoglobin 9.7 g/dL (12.0-16.0); Mean Platelet Volume 8.2 fL (7.4-10.4); Platelet Count 298 10^3/uL (150-450)
[2019-06-15] MEDS: Escitalopram * 20 MG TABLET PO SCH (08:57)
[2019-06-15] MEDS: oxyCODONE/Acetamin 5/325 MG* TAB PO PRN (08:57)
[2019-06-15] MEDS: BuPROPion XL* 300 MG TAB.XL PO SCH (08:57)
[2019-06-15] MEDS: Magnesium Hydroxide LIQ* 30 ML UDC PO SCH ×2 (08:58→23:16)
[2019-06-15] MEDS: Vitamin THERAPEUTIC TAB PO SCH (08:58)
[2019-06-15] MEDS: Apixaban* 2.5 MG TAB PO SCH ×2 (08:58→23:15)
[2019-06-15] MEDS: Nystatin TOP POWDER* 15 GM BTL TOPICAL SCH ×2 (08:58→23:16)
[2019-06-15] MEDS: Docusate CAP* 100 MG PO SCH ×2 (08:58→23:15)
[2019-06-15] MEDS: CMC:Varenicline (NF) 1 MG TAB PO SCH ×2 (08:58→23:16)
[2019-06-15 10:13] LABS: BUN/Creatinine Ratio 14.3 (8-20); Calcium 9.1 mg/dL (8.6-10.3); EGFR African American 75.8 (>60); EGFR Non-African American 62.6 (>60); Magnesium 1.9 mg/dL (1.9-2.7); Potassium 3.6 mmol/L (3.5-5.0)
--- NOTE | 2019-06-15 10:14 | PN ---
Progress Note - Progress Note Date of Service: 06/15/19 SOAP: Subjective: []Pt seen at bedside. She feels she has heart palpitations and feels SOB. Denies any chest pain. Denies dizziness, nausea. Her CTA was negative for PE. Her betablocker was held due to hypotension after surgery. Objective: []Gen: Appears well, NAD LLE: Left hip dressing changed and incision is CDI, thigh soft, DF/PF intact, DP2+, sensation intact to light touch distally. Calves supple and nontender without erythema, edema or palpable cords Assessment: []POD 2 sp left total hip arthroplasty Plan: []WBAT PT/OT posterior hip precautions eliquis 2.5 mg po BID x 30 days post op Being evaluated by medicine for medical comgmt, tachycardia - I have placed her on tele monitoring, ordered BMP and Mg. I suspect patient is having reflex tachycardia as her metoprolol was held. I have paged the hospitalist team to discuss this and I have also restarted her beta myesha in the meanwhile. Vital Signs Temp 98.1 F 06/15/19 08:24 Pulse 134 06/15/19 08:24 Resp 16 06/15/19 08:57 BP 107/54 06/15/19 08:24 Pulse Ox 97 06/15/19 08:24 Intake & Output 06/14/19 06/15/19 06/15/19 18:59 06:59 18:59 Intake Total 500 620 Output Total 850 500 Balance -350 120 Intake: Oral 500 620 Output: Urine 850 500 Laboratory Last Values Hgb 9.7 g/dL (12.0-16.0) L 06/15/19 04:34 Hct 29 % (35-47) L 06/15/19 04:34 Plt Count 298 10^3/uL (150-450) 06/15/19 04:34 MPV 8.2 fL (7.4-10.4) 06/15/19 04:34 Sodium 137 mmol/L (135-145) 06/15/19 09:44 Potassium 3.6 mmol/L (3.5-5.0) 06/15/19 09:44 Chloride 102 mmol/L (101-111) 06/15/19 09:44 Carbon Dioxide 24 mmol/L (22-32) 06/15/19 09:44 Anion Gap 11 mmol/L (2-11) 06/15/19 09:44 BUN 13 mg/dL (6-24) 06/15/19 09:44 Creatinine 0.91 mg/dL (0.51-0.95) 06/15/19 09:44 Est GFR ( Amer) 75.8 (>60) 06/15/19 09:44 Est GFR (Non-Af Amer) 62.6 (>60) 06/15/19 09:44 BUN/Creatinine Ratio 14.3 (8-20) 06/15/19 09:44 Glucose 114 mg/dL (70-100) H 06/15/19 09:44 Calcium 9.1 mg/dL (8.6-10.3) 06/15/19 09:44 Magnesium 1.9 mg/dL (1.9-2.7) 06/15/19 09:44 []
[2019-06-15] MEDS ORDERED: Metoprolol Tartrate TAB* 50 mg PO SCH (10:24)
[2019-06-15] MEDS ORDERED: Bisacodyl SUPP* 10 MG SUPP PR PRN (16:06)
[2019-06-15] MEDS: Atorvastatin* 40 MG TAB PO SCH (16:58)
--- NOTE | 2019-06-15 18:03 | PN ---
Subjective Date of Service: 06/15/19 Interval History: Pt is feeling ok this AM. She does state she felt mildly lightheaded when getting up to the chair this AM. It was noted by the ortho PA that the patient' s metoprolol was held this admission due to hypotension earlier. She denies any pain at rest in her hip. Objective Active Medications: Acetaminophen (Tylenol Tab*) 650 mg PO Q8HR PRN PRN Reason: MILD PAIN or TEMP > 100.4 Apixaban (Eliquis*) 2.5 mg PO BID [facility] Last Admin: 06/15/19 08:58 Dose: 2.5 mg Atorvastatin Calcium (Lipitor*) 40 mg PO QPM [facility] Last Admin: 06/15/19 16:58 Dose: 40 mg Bisacodyl (Dulcolax Supp*) 10 mg [place] DAILY PRN PRN Reason: CONSTIPATION Bupropion HCl (Bupropion Xl*) 300 mg PO QAM [facility] Last Admin: 06/15/19 08:57 Dose: 300 mg Cyclobenzaprine HCl (Flexeril Tab*) 10 mg PO Q6H PRN PRN Reason: SPASMS Last Admin: 06/15/19 16:58 Dose: 10 mg Diphenhydramine HCl (Benadryl Iv*) 25 mg IV Q6H PRN PRN Reason: PRURITIS Diphenhydramine HCl (Benadryl Po*) 25 mg PO Q6H PRN PRN Reason: PRURITIS Docusate Sodium (Colace Cap*) 100 mg PO BID [facility] Last Admin: 06/15/19 08:58 Dose: 100 mg Escitalopram Oxalate (Lexapro *) 20 mg PO QAM [facility] Last Admin: 06/15/19 08:57 Dose: 20 mg Lactated Ringer's (Lactated Ringers 1000 Ml Bag*) 1,000 mls @ 100 mls/hr IV PER RATE [facility] Last Admin: 06/14/19 04:16 Dose: 100 mls/hr Lactulose (Lactulose*) 30 ml PO BID PRN PRN Reason: CONSTIPATION Magnesium Hydroxide (Milk Of Magnesia Liq*) 30 ml PO BID [facility] Last Admin: 06/15/19 08:58 Dose: 30 ml Magnesium Hydroxide (Milk Of Magnesia Liq*) 30 ml PO Q6H PRN PRN Reason: CONSTIPATION Metoprolol Tartrate (Lopressor Tab*) 50 mg PO DAILY [facility] Last Admin: 06/15/19 11:10 Dose: 50 mg Morphine Sulfate (Morphine Inj (Syringe))*) 2 mg IV Q4H PRN PRN Reason: Pain - Unrelieved Multivitamins (Theragran Tab*) 1 tab PO DAILY [facility] Last Admin: 06/15/19 08:58 Dose: 1 tab Nortriptyline HCl (Pamelor Cap*) 50 mg PO BEDTIME [facility] Last Admin: 06/14/19 21:13 Dose: 50 mg Nystatin (Nystatin Top Powder*) 1 applic TOPICAL BID [facility] Last Admin: 06/15/19 08:58 Dose: Not Given Ondansetron HCl (Zofran Inj*) 4 mg IV Q6H PRN PRN Reason: NAUSEA Ondansetron HCl (Zofran Odt Tab*) 4 mg PO Q6H PRN PRN Reason: NAUSEA Oxycodone HCl (Roxycodone Tab*) 10 mg PO Q4H PRN PRN Reason: Pain - Breakthrough Last Admin: 06/15/19 00:33 Dose: 10 mg Oxycodone/Acetaminophen (Percocet 5/325 Tab*) 1 tab PO Q4H PRN PRN Reason: PAIN - MODERATE Last Admin: 06/15/19 08:57 Dose: 1 tab Oxycodone/Acetaminophen (Percocet 5/325 Tab*) 2 tab PO Q4H PRN PRN Reason: PAIN - SEVERE Last Admin: 06/14/19 21:11 Dose: 2 tab Varenicline (Chantix (Nf)) 1 mg PO BID [facility]; Protocol Last Admin: 06/15/19 08:58 Dose: Not Given Vital Signs - 8 hr 06/15/19 06/15/19 06/15/19 11:00 11:44 12:48 Temperature 98.5 F Pulse Rate 111 Respiratory 16 16 Rate Blood Pressure 91/38 90/58 (mmHg) O2 Sat by Pulse 92 Oximetry 06/15/19 06/15/19 16:01 16:58 Temperature 97.2 F Pulse Rate 92 Respiratory 16 16 Rate Blood Pressure 97/58 (mmHg) O2 Sat by Pulse 99 Oximetry Oxygen Devices in Use Now: None Appearance: Middle aged female sitting up in bed, NAD Eyes: No Scleral Icterus Ears/Nose/Mouth/Throat: Mucous Membranes Moist Respiratory: Symmetrical Chest Expansion and Respiratory Effort, Clear to Auscultation Cardiovascular: NL Sounds; No Murmurs; No JVD, No Edema, - - tachycardic but regular Abdominal: NL Sounds; No Tenderness; No Distention Extremities: No Clubbing, Cyanosis Skin: No Nodules or Sclerosis, - - L hip incision not inspected at this time. Neurological: Alert and Oriented x 3 Result Diagrams: 06/15/19 04:34 06/15/19 09:44 Assess/Plan/Problems-Billing Ms Parada is a 64 yo woman with history of HTN and osteoarthritis, admitted 06/13 for elective left total hip arthroplasty. - Patient Problems (1) Tachycardia Current Visit: Yes Status: Acute Code(s): R00.0 - TACHYCARDIA, UNSPECIFIED SNOMED Code(s): 0125807 Comment: Secondary to metoprolol being held earlier this admission. Monitor on tele. (2) Status post total hip replacement, left Current Visit: Yes Status: Acute Code(s): Z96.642 - PRESENCE OF LEFT ARTIFICIAL HIP JOINT SNOMED Code(s): 817357590089 Comment: POD #2. Pain is mostly controlled. Continue PT. Further management per orthopedics. (3) HTN (hypertension) Current Visit: Yes Status: Acute Code(s): I10 - ESSENTIAL (PRIMARY) HYPERTENSION SNOMED Code(s): 71212588 Comment: BP soft after administration of metoprolol. Continue to monitor. (4) DVT prophylaxis Current Visit: Yes Status: Acute Code(s): Z29.9 - ENCOUNTER FOR PROPHYLACTIC MEASURES, UNSPECIFIED SNOMED Code(s): 221810434 Comment: Eliquis 2.5mg bid Status and Disposition: .
[2019-06-15] MEDS: Nortriptyline CAP* 25 MG PO SCH (23:15)
[2019-06-16] MEDS: oxyCODONE/Acetamin 5/325 MG* TAB PO PRN ×3 (03:31→22:55)
[2019-06-16 04:50] LABS: Hematocrit 26 % (35-47); Hemoglobin 8.6 g/dL (12.0-16.0); Mean Platelet Volume 7.9 fL (7.4-10.4); Platelet Count 281 10^3/uL (150-450)
[2019-06-16] MEDS: Cyclobenzaprine TAB* 10 MG PO PRN (05:46)
--- NOTE | 2019-06-16 08:36 | PN ---
Subjective Date of Service: 06/16/19 Interval History: Pt is feeling well this AM. I asked her about her HR being up in the middle of the night and she stated she was up and moving around. She tells me she has always only been on metoprolol tartrate once daily despite it being typically a twice daily medication. She denies any significant pain in the hip. She is wanting to go home. Objective Active Medications: Acetaminophen (Tylenol Tab*) 650 mg PO Q8HR PRN PRN Reason: MILD PAIN or TEMP > 100.4 Apixaban (Eliquis*) 2.5 mg PO BID [facility] Last Admin: 06/15/19 23:15 Dose: 2.5 mg Atorvastatin Calcium (Lipitor*) 40 mg PO QPM [facility] Last Admin: 06/15/19 16:58 Dose: 40 mg Bisacodyl (Dulcolax Supp*) 10 mg [place] DAILY PRN PRN Reason: CONSTIPATION Bupropion HCl (Bupropion Xl*) 300 mg PO QAM [facility] Last Admin: 06/15/19 08:57 Dose: 300 mg Cyclobenzaprine HCl (Flexeril Tab*) 10 mg PO Q6H PRN PRN Reason: SPASMS Last Admin: 06/16/19 05:46 Dose: 10 mg Diphenhydramine HCl (Benadryl Iv*) 25 mg IV Q6H PRN PRN Reason: PRURITIS Diphenhydramine HCl (Benadryl Po*) 25 mg PO Q6H PRN PRN Reason: PRURITIS Docusate Sodium (Colace Cap*) 100 mg PO BID [facility] Last Admin: 06/15/19 23:15 Dose: 100 mg Escitalopram Oxalate (Lexapro *) 20 mg PO QAM [facility] Last Admin: 06/15/19 08:57 Dose: 20 mg Lactated Ringer's (Lactated Ringers 1000 Ml Bag*) 1,000 mls @ 100 mls/hr IV PER RATE [facility] Last Admin: 06/14/19 04:16 Dose: 100 mls/hr Lactulose (Lactulose*) 30 ml PO BID PRN PRN Reason: CONSTIPATION Magnesium Hydroxide (Milk Of Magnesia Liq*) 30 ml PO BID [facility] Last Admin: 06/15/19 23:16 Dose: Not Given Magnesium Hydroxide (Milk Of Magnesia Liq*) 30 ml PO Q6H PRN PRN Reason: CONSTIPATION Metoprolol Tartrate (Lopressor Tab*) 50 mg PO DAILY [facility] Last Admin: 06/15/19 11:10 Dose: 50 mg Morphine Sulfate (Morphine Inj (Syringe))*) 2 mg IV Q4H PRN PRN Reason: Pain - Unrelieved Multivitamins (Theragran Tab*) 1 tab PO DAILY [facility] Last Admin: 06/15/19 08:58 Dose: 1 tab Nortriptyline HCl (Pamelor Cap*) 50 mg PO BEDTIME [facility] Last Admin: 06/15/19 23:15 Dose: 50 mg Nystatin (Nystatin Top Powder*) 1 applic TOPICAL BID [facility] Last Admin: 06/15/19 23:16 Dose: Not Given Ondansetron HCl (Zofran Inj*) 4 mg IV Q6H PRN PRN Reason: NAUSEA Ondansetron HCl (Zofran Odt Tab*) 4 mg PO Q6H PRN PRN Reason: NAUSEA Oxycodone HCl (Roxycodone Tab*) 10 mg PO Q4H PRN PRN Reason: Pain - Breakthrough Last Admin: 06/15/19 00:33 Dose: 10 mg Oxycodone/Acetaminophen (Percocet 5/325 Tab*) 1 tab PO Q4H PRN PRN Reason: PAIN - MODERATE Last Admin: 06/16/19 03:31 Dose: 1 tab Oxycodone/Acetaminophen (Percocet 5/325 Tab*) 2 tab PO Q4H PRN PRN Reason: PAIN - SEVERE Last Admin: 06/14/19 21:11 Dose: 2 tab Varenicline (Chantix (Nf)) 1 mg PO BID [facility]; Protocol Last Admin: 06/15/19 23:16 Dose: Not Given Vital Signs - 8 hr 06/16/19 06/16/19 06/16/19 01:00 01:05 03:03 Temperature Pulse Rate 128 Respiratory 16 18 Rate Blood Pressure (mmHg) O2 Sat by Pulse 96 Oximetry 06/16/19 06/16/19 06/16/19 03:31 03:54 05:46 Temperature 98.3 F Pulse Rate 108 Respiratory 18 20 16 Rate Blood Pressure 130/55 (mmHg) O2 Sat by Pulse 94 Oximetry 06/16/19 06/16/19 05:49 07:52 Temperature 97.7 F Pulse Rate 99 Respiratory 16 16 Rate Blood Pressure 114/63 (mmHg) O2 Sat by Pulse 97 Oximetry Oxygen Devices in Use Now: None Appearance: Middle aged female sitting up in bed, NAD Eyes: No Scleral Icterus Ears/Nose/Mouth/Throat: Mucous Membranes Moist Respiratory: Symmetrical Chest Expansion and Respiratory Effort, Clear to Auscultation Cardiovascular: NL Sounds; No Murmurs; No JVD, No Edema, - - HR is mildly tachycardic Abdominal: NL Sounds; No Tenderness; No Distention Extremities: No Clubbing, Cyanosis Skin: No Nodules or Sclerosis Neurological: Alert and Oriented x 3 Result Diagrams: 06/16/19 04:40 06/15/19 09:44 Assess/Plan/Problems-Billing Ms Parada is a 64 yo woman with history of HTN and osteoarthritis, admitted 06/13 for elective left total hip arthroplasty. - Patient Problems (1) Tachycardia Current Visit: Yes Status: Acute Code(s): R00.0 - TACHYCARDIA, UNSPECIFIED SNOMED Code(s): 4505394 Comment: Improved though overnight she again became tachycardic. Will change from metoprolol tartrate 50mg daily to 25mg BID. Monitor on tele. (2) Status post total hip replacement, left Current Visit: Yes Status: Acute Code(s): Z96.642 - PRESENCE OF LEFT ARTIFICIAL HIP JOINT SNOMED Code(s): 968056053630 Comment: POD #3. Pain generally controlled. Continue PT. Further management per orthopedics. (3) HTN (hypertension) Current Visit: Yes Status: Acute Code(s): I10 - ESSENTIAL (PRIMARY) HYPERTENSION SNOMED Code(s): 24476720 Comment: BP improved today but still not high enough that I would resume her home dose of losartan yet. (4) DVT prophylaxis Current Visit: Yes Status: Acute Code(s): Z29.9 - ENCOUNTER FOR PROPHYLACTIC MEASURES, UNSPECIFIED SNOMED Code(s): 163680265 Comment: Eliquis 2.5mg bid (5) Full code status Current Visit: Yes Status: Acute Code(s): Z78.9 - OTHER SPECIFIED HEALTH STATUS SNOMED Code(s): 832794742 Status and Disposition: .
[2019-06-16] MEDS: Magnesium Hydroxide LIQ* 30 ML UDC PO SCH ×2 (09:11→21:17)
[2019-06-16] MEDS: Escitalopram * 20 MG TABLET PO SCH (09:25)
[2019-06-16] MEDS: CMC:Varenicline (NF) 1 MG TAB PO SCH ×2 (09:25→21:18)
[2019-06-16] MEDS: Metoprolol Tartrate TAB* 25 MG PO SCH ×2 (09:25→21:08)
[2019-06-16] MEDS: Docusate CAP* 100 MG PO SCH ×2 (09:25→21:17)
[2019-06-16] MEDS: Nystatin TOP POWDER* 15 GM BTL TOPICAL SCH ×2 (09:25→21:03)
[2019-06-16] MEDS: Vitamin THERAPEUTIC TAB PO SCH (09:26)
[2019-06-16] MEDS: BuPROPion XL* 300 MG TAB.XL PO SCH (09:26)
[2019-06-16] MEDS: Apixaban* 2.5 MG TAB PO SCH ×2 (09:26→21:08)
--- NOTE | 2019-06-16 11:06 | PN ---
Progress Note - Progress Note Date of Service: 06/16/19 Note: POD 3 s/p left COLTON: Patient has been orthopedically stable working with PT and using walker with one assist. She has minimal pain with movement. She is following hip precautions . She denies SOB, CP or dizziness. +DF/PF with intact sensation and 2+ DP pulse. Patient is being monitored on tele for overnight tachy cardia. We are awaiting clearance from medicine for discharge. Continue pain management, PT and we appreciate medicine's guidance. We will monitor and hope for d/c tomorrow.
[2019-06-16] MEDS: Atorvastatin* 40 MG TAB PO SCH (18:09)
[2019-06-16] MEDS: Nortriptyline CAP* 25 MG PO SCH (21:08)
[2019-06-16] MEDS: oxyCODONE TAB* 5 MG TAB PO PRN (21:08)
[2019-06-17 05:51] LABS: Hematocrit 27 % (35-47); Hemoglobin 9.2 g/dL (12.0-16.0); Mean Platelet Volume 8.2 fL (7.4-10.4); Platelet Count 335 10^3/uL (150-450)
--- NOTE | 2019-06-17 07:26 | PN ---
Subjective Date of Service: 06/17/19 Interval History: Pt is feeling well this AM. She states she had a restful night. She was fairly SOB yesterday afternoon with ambulation. Because of this I obtained CXR and wanted to monitor the pt overnight again. She states after I saw her in the afternoon, she ambulated again and was less SOB but still towards the end of her walk felt somewhat SOB and mildly lightheaded. She thinks she may be holding her breath as she is focusing so much on her hip. Pain is controlled. She is anxious to go home. Objective Active Medications: Acetaminophen (Tylenol Tab*) 650 mg PO Q8HR PRN PRN Reason: MILD PAIN or TEMP > 100.4 Last Admin: 06/16/19 18:13 Dose: 650 mg Apixaban (Eliquis*) 2.[address] [facility] Last Admin: 06/16/19 21:08 Dose: 2.5 mg Atorvastatin Calcium (Lipitor*) [address] [facility] Last Admin: 06/16/19 18:09 Dose: 40 mg Bisacodyl (Dulcolax Supp*) 10 mg CO DAILY PRN PRN Reason: CONSTIPATION Bupropion HCl (Wellbutrin Xl *) [address] [facility] Cyclobenzaprine HCl (Flexeril Tab*) 10 mg PO Q6H PRN PRN Reason: SPASMS Last Admin: 06/16/19 05:46 Dose: 10 mg Diphenhydramine HCl (Benadryl Iv*) 25 mg IV Q6H PRN PRN Reason: PRURITIS Diphenhydramine HCl (Benadryl Po*) 25 mg PO Q6H PRN PRN Reason: PRURITIS Docusate Sodium (Colace Cap*) [address] [facility] Last Admin: 06/16/19 21:17 Dose: Not Given Escitalopram Oxalate (Lexapro *) [address] [facility] Last Admin: 06/16/19 09:25 Dose: 20 mg Lactulose (Lactulose*) 30 ml PO BID PRN PRN Reason: CONSTIPATION Magnesium Hydroxide (Milk Of Magnesia Liq*) [address] [facility] Last Admin: 06/16/19 21:17 Dose: Not Given Magnesium Hydroxide (Milk Of Magnesia Liq*) 30 ml PO Q6H PRN PRN Reason: CONSTIPATION Metoprolol Tartrate (Lopressor Tab*) [address] [facility] Last Admin: 06/16/19 21:08 Dose: 25 mg Morphine Sulfate (Morphine Inj (Syringe))*) 2 mg IV Q4H PRN PRN Reason: Pain - Unrelieved Multivitamins (Theragran Tab*) [address] [facility] Last Admin: 06/16/19 09:26 Dose: 1 tab Nortriptyline HCl (Pamelor Cap*) [address] [facility] Last Admin: 06/16/19 21:08 Dose: 50 mg Nystatin (Nystatin Top Powder*) [address] [facility] Last Admin: 06/16/19 21:03 Dose: Not Given Ondansetron HCl (Zofran Inj*) 4 mg IV Q6H PRN PRN Reason: NAUSEA Ondansetron HCl (Zofran Odt Tab*) 4 mg PO Q6H PRN PRN Reason: NAUSEA Oxycodone HCl (Roxycodone Tab*) 10 mg PO Q4H PRN PRN Reason: Pain - Breakthrough Last Admin: 06/16/19 21:08 Dose: 10 mg Oxycodone/Acetaminophen (Percocet 5/325 Tab*) 1 tab PO Q4H PRN PRN Reason: PAIN - MODERATE Last Admin: 06/16/19 09:26 Dose: 1 tab Oxycodone/Acetaminophen (Percocet 5/325 Tab*) 2 tab PO Q4H PRN PRN Reason: PAIN - SEVERE Last Admin: 06/16/19 22:55 Dose: 2 tab Varenicline (Chantix (Nf)) [address] [facility]; Protocol Last Admin: 06/16/19 21:18 Dose: Not Given Vital Signs - 8 hr 06/16/19 06/16/19 06/17/19 23:28 23:39 00:00 Temperature 98.1 F Pulse Rate 85 Respiratory 20 18 Rate Blood Pressure 103/65 (mmHg) O2 Sat by Pulse 97 97 Oximetry 06/17/19 06/17/19 00:58 03:49 Temperature 98.0 F Pulse Rate 88 Respiratory 16 20 Rate Blood Pressure 99/56 (mmHg) O2 Sat by Pulse 94 Oximetry Oxygen Devices in Use Now: None Appearance: Middle aged obese female lying in bed sleeping, awakens to voice, NAD Eyes: No Scleral Icterus Ears/Nose/Mouth/Throat: Mucous Membranes Moist Respiratory: Symmetrical Chest Expansion and Respiratory Effort, Clear to Auscultation Cardiovascular: NL Sounds; No Murmurs; No JVD, RRR, No Edema, - - HR borderline tachycardic Abdominal: NL Sounds; No Tenderness; No Distention Extremities: No Clubbing, Cyanosis Skin: No Nodules or Sclerosis Neurological: Alert and Oriented x 3 Result Diagrams: 06/17/19 04:43 06/15/19 09:44 Assess/Plan/Problems-Billing Ms Parada is a 64 yo woman with history of HTN and osteoarthritis, admitted 06/13 for elective left total hip arthroplasty. - Patient Problems (1) Tachycardia Current Visit: Yes Status: Acute Code(s): R00.0 - TACHYCARDIA, UNSPECIFIED SNOMED Code(s): 9593733 Comment: HR generally improved after splitting dose of metoprolol to 25mg BID instead of 50mg daily. (2) Status post total hip replacement, left Current Visit: Yes Status: Acute Code(s): Z96.642 - PRESENCE OF LEFT ARTIFICIAL HIP JOINT SNOMED Code(s): 701264370724 Comment: POD #4. Likely d/c home today. (3) HTN (hypertension) Current Visit: Yes Status: Acute Code(s): I10 - ESSENTIAL (PRIMARY) HYPERTENSION SNOMED Code(s): 62811383 Comment: BP is still lower than likely her baseline as she is off her losartan and HCTZ still. On d/c pt should go home on only metoprolol tartrate 25mg BID and her other antihypertensives should be held until she is seen in follow up by her PCP (which should occur in the next 5-7 days). (4) DVT prophylaxis Current Visit: Yes Status: Acute Code(s): Z29.9 - ENCOUNTER FOR PROPHYLACTIC MEASURES, UNSPECIFIED SNOMED Code(s): 411153256 Comment: Eliquis 2.5mg bid (5) Full code status Current Visit: Yes Status: Acute Code(s): Z78.9 - OTHER SPECIFIED HEALTH STATUS SNOMED Code(s): 217084931 Status and Disposition: .
--- NOTE | 2019-06-17 07:38 | PN ---
Progress Note - Progress Note Date of Service: 06/17/19 SOAP: Subjective: [Pt reports doing well. Pain managed with Percocet and Flexeril. SOB seems to be resolving and CXR unremarkable. Ready to go home - has been cleared by Medicine.] Objective: [A and O x 3, NAD L hip dressing changed. Surgical wound benign. Calves soft, NT. Distal gross motor, NV function Intact. Laboratory Results - last 24 hr 06/17/19 04:43 Hgb 9.2 L Hct 27 L Plt Count 335 MPV 8.2 ] Assessment: [s/p L COLTON POD #4] Plan: [PT D/C home today with services Per Medicine will go home only on metoprolol tartrate 25 mg bid and hold other hypertensives until seen by PCP Johnnie Crowley for pain/spasm Eliquis for DVT prophylaxis F/U with Dr. Odell 2 weeks post op]
[2019-06-17 07:49] VITALS: BP 98/53
[2019-06-17] MEDS: Apixaban* 2.5 MG TAB PO SCH (07:59)
[2019-06-17] MEDS: Metoprolol Tartrate TAB* 25 MG PO SCH (08:00)
[2019-06-17] MEDS: Escitalopram * 20 MG TABLET PO SCH (08:00)
[2019-06-17] MEDS: Magnesium Hydroxide LIQ* 30 ML UDC PO SCH (08:00)
[2019-06-17] MEDS: Docusate CAP* 100 MG PO SCH (08:00)
[2019-06-17] MEDS: CMC:Varenicline (NF) 1 MG TAB PO SCH (08:01)
[2019-06-17] MEDS: Vitamin THERAPEUTIC TAB PO SCH (08:01)
[2019-06-17] MEDS: Nystatin TOP POWDER* 15 GM BTL TOPICAL SCH (08:01)
[2019-06-17] MEDS: oxyCODONE/Acetamin 5/325 MG* TAB PO PRN (08:13)
[2019-06-17] MEDS ORDERED: BuPROPion XL* 150 MG TAB.XL PO SCH (09:00)
--- NOTE | 2019-06-17 22:22 | DS ---
AMENDED REPORT NOW INCLUDES DESIGNATED COSIGNER DISCHARGE SUMMARY: DATE OF ADMISSION: 06/13/19 DATE OF DISCHARGE: 06/17/19 ADMITTING SURGEON: Dr. Odell.* (DICTATED BY NEELAM WU) ADMITTING DIAGNOSES: 1. Left hip osteoarthritis. 2. Morbid obesity. 3. Chronic back pain. 4. Lumbar stenosis. 5. Depression/anxiety. 6. Hypertension. 7. Hypercholesterolemia. DISCHARGE DIAGNOSES: 1. Status post left total hip arthroplasty. 2. Morbid obesity. 3. Chronic back pain. 4. Lumbar stenosis. 5. Depression/anxiety. 6. Hypertension. 7. Hypercholesterolemia. PROCEDURE: Left total hip arthroplasty. CONSULTANTS: Physical Therapy, Occupational Therapy, and Medicine. BRIEF HISTORY: Ms. Parada is a 64-year-old female with severe degenerative osteoarthritis of her left hip. She failed conservative treatment measures and elected to undergo a left total hip arthroplasty on 06/13/[address] Odell. HOSPITAL COURSE: Ms. Parada was admitted to [facility] on 06/13/19. She underwent an uncomplicated left total hip arthroplasty. Postoperatively she recovered on the short-stay surgical unit. Her Briceño catheter was removed on postoperative day 1 and she was able to urinate on her own. She had issues with tachycardia and hypotension and was followed by Medicine. Chest x-ray and other workups were unremarkable. She advanced to a regular diet without difficulty and pain was well controlled with Percocet and Flexeril for muscle spasms. She advanced appropriately with physical therapy and occupational therapy. DVT prophylaxis with Eliquis 2.5 mg b.i.d. Orthopedically she recovered well and medically she was stable for discharge home with services on 06/17/19, postoperative day #4. PHYSICAL EXAMINATION: General: On examination, the patient is noted to be calm and cooperative, in no acute distress. She is alert and oriented x3. Vital Signs: On day of discharge, temperature 98.1 degrees Fahrenheit, pulse rate 88, respiratory rate 20, O2 sat 94% on room air, blood pressure 99/56. Extremities examination on her left lower extremity demonstrates dressing overlying the left hip, which is clean, dry, and intact. Her thigh is swollen, but compressible. Distally, she has +2 palpable DP pulse, 5/5 dorsiflexion, plantarflexion, and strength. Sensation is intact to light touch. DIAGNOSTIC STUDIES/LAB DATA: On the day of discharge, hemoglobin 9.2, hematocrit 27. Radiograph: Postoperative radiograph of the left hip demonstrates a left total hip arthroplasty with satisfactory prosthesis placement and no acute abnormalities. DISCHARGE MEDICATIONS: 1. Metoprolol tartrate 50 mg 1 tab daily. 2. Atorvastatin calcium 40 mg daily. 3. Bupropion HCL 300 mg daily. 4. Nortriptyline HCL 25 mg daily. 5. Vitamin D 2000 units daily. 6. Citalopram oxalate 20 mg daily. 7. Tizanidine HCL 4 mg daily. 8. Nabumetone 750 mg every 12 hours. 9. Flexeril 10 mg q.8 hours p.r.n. muscle spasm. 10. Percocet 5/325, one to two tabs q.4 to 6 hours p.r.n. pain, maximum daily dose of 10. 11. Eliquis 2.5 mg b.i.d. x1 month. 12. Colace 100 mg p.o. t.i.d. p.r.n. constipation. CONDITION ON DISCHARGE: Stable. DISCHARGE INSTRUCTIONS: Ms. Parada is a 64-year-old female, postoperative day #4 , status post left total hip arthroplasty, which was uncomplicated. She is orthopedically and medically stable to be discharged home with services. She has stable vital signs and labs. She will restart home medications, except for her losartan and hydrochlorothiazide, per Medicine. She will be following up with her primary care physician over the next week. She will remain weightbearing as tolerated on the left lower extremity and have home physical therapy twice a day. Percocet and Flexeril for pain control. Eliquis for DVT prophylaxis. She will follow up in the office with Dr. Odell in 10 to 14 days for incision check and suture removal. She was instructed to call Dr. Odell or go immediately to the ER should she develop any new fever, chills, incision pain , redness or drainage. She was instructed to go immediately to the ER should she develop chest pain or shortness of breath. NEELAM WU [id number]/[facility] #: [id number] [facility]OSPITALIliana
== END 2019-06-17 11:30 | disposition home health service (06) | DRG 301 ==
LOC: AA 06-13 10:31 → SSU 06-13 18:17
PROVIDERS: ADMIT Orthopaedic Surgery Adult Reconstructive Orthopaedic Surgery; ATTEND Orthopaedic Surgery Adult Reconstructive Orthopaedic Surgery
PROC: 0SRB04A Replacement of Left Hip Joint with Ceramic on Polyethylene Synthetic Substitute, Uncemented, Open Approach (ICD-10-PCS; principal; 2019-06-13 13:30)
DX: M16.12 Unilateral primary osteoarthritis, left hip (principal); Z68.41 Body mass index [BMI] 40.0-44.9, adult; E66.01 Morbid (severe) obesity due to excess calories; G89.29 Other chronic pain; M54.9 Dorsalgia, unspecified; M48.061 Spinal stenosis, lumbar region without neurogenic claudication; F32.9 Major depressive disorder, single episode, unspecified; F41.9 Anxiety disorder, unspecified; I10 Essential (primary) hypertension; E78.5 Hyperlipidemia, unspecified; I95.9 Hypotension, unspecified; E78.00 Pure hypercholesterolemia, unspecified; R00.0 Tachycardia, unspecified; F17.210 Nicotine dependence, cigarettes, uncomplicated; K21.9 Gastro-esophageal reflux disease without esophagitis; M25.752 Osteophyte, left hip; M62.838 Other muscle spasm; Z98.1 Arthrodesis status; Z80.9 Family history of malignant neoplasm, unspecified; Z72.89 Other problems related to lifestyle; Z23 Encounter for immunization; Z98.41 Cataract extraction status, right eye; Z98.42 Cataract extraction status, left eye; Z83.2 Family history of diseases of the blood and blood-forming organs and certain disorders involving the immune mechanism; Z88.6 Allergy status to analgesic agent
CPT/HCPCS: 36415; 71046; 71275; 72170; 80048; 83735; 85014; 85018; 85049; 88304; 88311; 90686; 90732; 93005; A9270-GY; C1713; C1776; J0360; J0690; J1100; J1170; J1885; J2250; J2405; J2704; J2765; J2795; J3010; J3490; Q9967